=== PATIENT | female | born 1950 | race Caucasian/White ===

== ENCOUNTER 2018-07-18 19:11 | Emergency (ER) | payer OTHER, MEDICARE ==
--- NOTE | 2018-07-18 20:43 | ER Document Report ---
HPI - HPI Time Seen by Provider: 07/18/18 20:33 Pain Level: 3 Context: Patient is a 68-year-old female who presents emergency department with a chief complaint of a cat bite to her left hand. This happened about 4 days ago. She noticed today that it seemed like it was getting infected, therefore she came to the emergency department. She complains of bilateral lower extremity swelling also. She drove in from [place] a few days ago. She attempted to take a "water pill," but states that the swelling has not seem to go down. She denies any pain. She was on a diuretic before, but states that she was taken off because she was getting recurrent urinary tract infections. She has a past medical history of hypertension, atrial fibrillation, and hypothyroidism. - CONSTITUTIONAL Constitutional: DENIES: Fever, Chills - NEURO Neurology: DENIES: Headache - CARDIOVASCULAR Cardiovascular: DENIES: Chest pain - RESPIRATORY Respiratory: DENIES: Coughing - GASTROINTESTINAL Gastrointestinal: DENIES: Abdominal Pain - URINARY Urinary: DENIES: Dysuria - MUSCULOSKELETAL Musculoskeletal: REPORTS: Swelling - Bilateral lower extremities - DERM Skin Color: Normal Skin Problems: Skin Tear - Left hand Past Medical History - Social History Smoking Status: Unknown if Ever Smoked Family History: Reviewed & Not Pertinent Vertical Provider Document - CONSTITUTIONAL Agree With Documented VS: Yes Exam Limitations: No Limitations - INFECTION CONTROL TRAVEL OUTSIDE OF THE [place] IN LAST 30 DAYS: No - HEENT HEENT: Atraumatic, Normocephalic - NECK Neck: Normal Inspection - RESPIRATORY Respiratory: Breath Sounds Normal - CARDIOVASCULAR Cardiovascular: Regular Rate Pulses: Normal: Radial - MUSCULOSKELETAL/EXTREMETIES Musculoskeletal/Extremeties: FROM - NEURO Level of Consciousness: Awake, Alert, Appropriate Motor/Sensory: No Motor Deficit - DERM Integumentary: Warm, Dry Notes: Wound to the left hand from cat bite Course - Re-evaluation Re-evalutation: 07/18/18 20:46 Patient's Bite wound appears to be healing, but does have some surrounding cellulitis noted to the area. She will be started on Augmentin. No x-rays are indicated at this time. The patient is nonseptic in appearance. She will also be given MARICHUY hose to wear for her bilateral lower extremity swelling. I have a very low suspicion for DVT. Verbal discharge instructions were given to the patient. They verbalized understanding. They are stable for discharge. - Vital Signs Vital signs: Temp Pulse Resp BP Pulse Ox 98.1 F 62 18 151/66 H 98 07/18/18 19:20 07/18/18 19:20 07/18/18 19:20 07/18/18 19:20 07/18/18 19:20 Discharge - Discharge Clinical Impression: Swelling of both lower extremities Cat bite Qualifiers: Encounter type: initial encounter Qualified Code(s): W55.01XA - Bitten by cat, initial encounter Condition: Stable Disposition: HOME, SELF-CARE Additional Instructions: You were seen today in the emergency department for a cat bite and lower leg swelling in both legs. You have been given antibiotics for your cat bite. Ple ase take all your medication as prescribed. You have been given MARICHUY hose to help with your lower leg swelling. You may wear the hose during the day and take them off every few hours to let her legs breathe. If you develop shortness of breath, difficulty breathing, leg pain, worsening symptoms, or any symptoms that are worrisome to you, please return to the emergency department. Please follow-up with your primary care provider when you go home. Prescriptions: Amox Tr/Potassium Clavulanate [Augmentin 875-125 Tablet] 1 tab PO BID 10 Days #20 tablet
[2018-07-18] MEDS ORDERED: AMOXICILLIN TR/POT CLAVULANATE 500-125 MG TAB PO ONE (20:52)
[2018-07-18 21:06] VITALS: BP 143/69
== END 2018-07-18 21:07 | disposition home or self-care (01) ==
LOC: ER 19:11
DX: S61.452A Open bite of left hand, initial encounter (principal); M79.89 Other specified soft tissue disorders; W55.01XA Bitten by cat, initial encounter; I10 Essential (primary) hypertension; I48.91 Unspecified atrial fibrillation; E03.9 Hypothyroidism, unspecified
CPT/HCPCS: 99283